=== PATIENT | male | born 1940 | race Caucasian/White ===

== ENCOUNTER 2016-12-09 10:56 | Emergency (ER) | payer MEDICARE ==
[~2016-12-09] VITALS: Ht 172.7 cm; Wt 88.5 kg
[~2016-12-09 10:56] MED LIST: EZET10 PO; HYDR-3535 PO; LIDO5T TOP; LOTE20TA PO
[2016-12-09 11:08] VITALS: BP 165/93; PULSE 72; RESP 18; TEMP 98.5; O2SAT 97
[2016-12-09] MEDS ORDERED: METF500T PO (11:25)
[2016-12-09] MEDS ORDERED: LOSA25TA PO (11:25)
[2016-12-09] MEDS ORDERED: ZETI10TA5 PO (11:25)
--- NOTE | 2016-12-09 11:44 | PD ---
HPI Chief Complaint: Foreign Body Time Seen by Provider: 11:38 Travel History International Travel<30 days: No Contact w/Intl Traveler<30days: No Traveled to known affect area: No History of Present Illness HPI This 75-year-old male is concerned that there may be a needle embedded in his right thigh. He gives himself test dose testosterone injections. He was giving himself an injection today and noted that there was no needle at the end of the syringe after the injection. He is not having pain or discomfort at the site PFSH Past Medical History Cancer: No Cardiovascular Problems: Yes High Cholesterol: Yes Diabetes: Yes Patient Takes Glucophage: Yes Endocrine: No Gout: Yes Genitourinary: No Hepatitis: No Hiatal Hernia: Yes Hypertension: Yes Immune Disorder: No Medical other: Yes (ARTHRITIS) Musculoskeletal: Yes (NECK AND BACK, ARTHRITIES) Neurologic: No Psychiatric: No Respiratory: No Immunizations Current: Yes Thyroid Disease: No Tetanus Vaccination: > 5 Years Influenza Vaccination: Yes Past Surgical History Abdominal Surgery: Yes (APPY) Appendectomy: Yes Body Medical Devices: JAW LEFT, RIGHT ORBITAL Eye Surgery: Yes (RIGHT ORBIT) Joint Replacement: Yes (RIGHT KNEE) Oral Surgery: Yes (LEFT JAW) Pacemaker: No Tonsillectomy: Yes Other Surgery: Yes Social History Alcohol Use: Yes (Occ.) Tobacco Use: No Substance Use: No Allergies-Medications (Allergen,Severity, Reaction): Coded Allergies: Sulfa (Verified Allergy, Severe, EYES SWOLLEN A CHILD AGE 3, 12/09/16) Reported Meds & Prescriptions Reported Meds & Active Scripts Active Reported Losartan (Losartan Potassium) 25 Mg Tab 12.5 Mg PO DAILY Metformin (Metformin HCl) 500 Mg Tab 500 Mg PO DAILY With a meal Zetia (Ezetimibe) 10 Mg Tab 10 Mg PO DAILY Review of Systems General / Constitutional: No: Fever, Chills Gastrointestinal: No: Vomiting, Diarrhea Physical Exam Narrative GENERAL: Well-developed male SKIN: Warm and dry. HEAD: Atraumatic. Normocephalic. EYES: Pupils equal and round. No scleral icterus. No injection or drainage. ENT: No nasal bleeding or discharge. Mucous membranes pink and moist. NECK: Trachea midline. No JVD. MUSCULOSKELETAL: No obvious deformities. No clubbing. No cyanosis. No edema. There is a small puncture wound on the lateral aspect of the mid thigh. There is no palpable foreign body NEUROLOGICAL: Awake and alert. No obvious cranial nerve deficits. Motor grossly within normal limits. Normal speech. PSYCHIATRIC: Appropriate mood and affect; insight and judgment normal. Data Data Last Documented VS Vital Signs Date Time Temp Pulse Resp B/P Pulse Ox O2 Delivery O2 Flow Rate FiO2 12/09/16 11:08 98.5 72 18 165/93 97 Orders Femur (Ap & Lat/2vws) (12/09/16 11:38) MDM Medical Decision Making Medical Screen Exam Complete: Yes Emergency Medical Condition: Yes Medical Record Reviewed: Yes Differential Diagnosis Differential includes foreign body right thigh Narrative Course X-ray is negative for foreign body. Patient is not having symptoms. He is stable for discharge Diagnosis Primary Impression: puncture wound, no foreign body see Disposition: 01 DISCHARGE HOME Condition: Stable Zach Haro MD Dec 09, 2016 11:44
--- NOTE | 2016-12-09 14:22 | RADHPO ---
EXAM DATE/TIME: 12/09/2016 11:46 [facility] COMPARISON: CHEST SINGLE AP, July 11, 2015, 14:57. INDICATIONS : Foreign body, patient gives himself injections and he thinks the needle broke off in his right mid th igh. MEDICAL HISTORY : None. SURGICAL HISTORY : Total knee replacement, right. ENCOUNTER: Initial ACUITY: 1 day PAIN SCORE: 0/10 LOCATION: Right mid thigh FINDINGS: Multiple views of the right femur demonstrates no evidence of fracture or dislocation. Bony mineral ization is normal. Total right knee arthroplasty in place without evidence of complication. The soft tissue structures are intact. CONCLUSION: No acute disease. Patricia Gupta MD on December 09, 2016 at 12:22 Board Certified Radiologist. This report was verified electronically.
== END 2016-12-09 12:15 | disposition home or self-care (01) ==
LOC: PHEFT 10:56
DX: S71.131A Puncture wound without foreign body, right thigh, initial encounter (principal); E78.00 Pure hypercholesterolemia, unspecified; I10 Essential (primary) hypertension; W45.8XXA Other foreign body or object entering through skin, initial encounter; W22.8XXA Striking against or struck by other objects, initial encounter; Y93.89 Activity, other specified; Y92.9 Unspecified place or not applicable
CPT/HCPCS: 73552; 99283

== ENCOUNTER 2017-01-05 15:44 | Emergency (ER) | payer MEDICARE ==
[~2017-01-05] VITALS: Ht 172.7 cm; Wt 89.5 kg
[~2017-01-05 15:44] MED LIST changes: -EZET10 PO; -HYDR-3535 PO; -LIDO5T TOP; +LOSA25TA PO; -LOTE20TA PO; +METF500T PO; +ZETI10TA5 PO
[2017-01-05 15:48] VITALS: PULSE 77; RESP 16; TEMP 98.5; O2SAT 96
[2017-01-05] MEDS ORDERED: TEST1INJ3 IM (16:12)
[2017-01-05] MEDS ORDERED: LOSA25TA PO (16:12)
[2017-01-05] MEDS ORDERED: ZETI10TA5 PO (16:12)
[2017-01-05] MEDS ORDERED: METF500T PO (16:12)
[2017-01-05] MEDS ORDERED: HGH IM (16:12)
--- NOTE | 2017-01-05 16:27 | PD ---
HPI Chief Complaint: Pain: Acute or Chronic Time Seen by Provider: 16:09 Travel History International Travel<30 days: No Contact w/Intl Traveler<30days: No Traveled to known affect area: No History of Present Illness HPI This patient complains of a burning sensation in his left upper back. Admits in the area of the shoulder blade. No injury. Duration 2 days. He has numerous joint ailments and chronic pains in his neck and back. He said cervical surgery. He recently had an MRI of his spine and is going to follow up with neurosurgery to discuss the results. He does not have muscle weakness or sensory loss. He has both hydrocodone and lidocaine patches at home but has not tried either. Symptom severity is moderate PFSH Past Medical History Hx Anticoagulant Therapy: No Cancer: No Cardiovascular Problems: Yes (HTN) High Cholesterol: Yes Diabetes: Yes Patient Takes Glucophage: Yes Diminished Hearing: No Endocrine: No Gout: Yes Genitourinary: No Hepatitis: No Hiatal Hernia: Yes Hypertension: Yes Immune Disorder: No Medical other: Yes (ARTHRITIS) Musculoskeletal: Yes (NECK AND BACK, ARTHRITIES) Neurologic: No Psychiatric: No Respiratory: No Immunizations Current: Yes Thyroid Disease: No Tetanus Vaccination: < 5 Years Past Surgical History Abdominal Surgery: Yes (APPY) Appendectomy: Yes Body Medical Devices: JAW LEFT, RIGHT ORBITAL Eye Surgery: Yes (RIGHT ORBIT) Joint Replacement: Yes (bilateral knees) Oral Surgery: Yes (LEFT JAW) Pacemaker: No Tonsillectomy: Yes Other Surgery: Yes Social History Alcohol Use: Yes (1-2 beer/vodka per week) Tobacco Use: No ("quit 45 years ago" stated 01/05/17) Substance Use: No Allergies-Medications (Allergen,Severity, Reaction): Coded Allergies: Sulfa (Verified Allergy, Severe, EYES SWOLLEN A CHILD AGE 3, 01/05/17) Reported Meds & Prescriptions Reported Meds & Active Scripts Active Reported [Hgh Inj] Mg IM DAILY Testosterone Cypionate Inj (Testosterone Cypionate) 100 Mg/Ml Inj 100 Mg IM WEEKLY Metformin (Metformin HCl) 500 Mg Tab 500 Mg PO DAILY With a meal Zetia (Ezetimibe) 10 Mg Tab 10 Mg PO HS Losartan (Losartan Potassium) 25 Mg Tab 12.5 Mg PO DAILY Review of Systems General / Constitutional: No: Fever HENT: No: Headaches Cardiovascular: No: Chest Pain or Discomfort Physical Exam Narrative SKIN: Inspection shows no rash or ulcers. Palpation shows no induration or nodules. NEUROLOGICAL: Awake and alert. Pupils are equal round and reactive. Motor and sensory grossly within normal limits. Five out of 5 muscle strength in all muscle groups. Normal speech. No midline tenderness of neck or back Good range of motion left shoulder. There is some tenderness in the rhomboid musculature just medial to the edge of the scapula Data Data Last Documented VS Vital Signs Date Time Temp Pulse Resp B/P Pulse Ox O2 Delivery O2 Flow Rate FiO2 01/05/17 15:48 98.5 77 16 96 MDM Medical Decision Making Medical Screen Exam Complete: Yes Emergency Medical Condition: Yes Medical Record Reviewed: Yes Differential Diagnosis Rhomboid muscle strain, peripheral neuropathy, disc herniation Narrative Course I have reviewed the patient's electronic medical record. No objective findings here on exam. He has a burning type of pain in the rhomboid musculature area. I offered him several different things including medication here were different medications on prescription but he declines them all He doesn't like to take medication and possible He has several options at home that he will consider using. Recommend he discuss with his family physician as well as his neurosurgeon There is no injury or trauma. I don't feel like emergency studies are going to be helpful here Today. Diagnosis Primary Impression: Back pain Qualified Code: M54.6 - Acute left-sided thoracic back pain Additional Instructions: The patient was advised to follow up with their physician and return if they worsen. Med/Other Pt SpecificInfo: Other Disposition: 01 DISCHARGE HOME Condition: Stable Miguel Rollins MD Jan 05, 2017 16:27
[2017-01-05 16:44] VITALS: BP 169/84
== END 2017-01-05 16:46 | disposition home or self-care (01) ==
LOC: PHED 15:44
DX: M54.6 Pain in thoracic spine (principal); I10 Essential (primary) hypertension; E78.00 Pure hypercholesterolemia, unspecified; E11.9 Type 2 diabetes mellitus without complications; Z87.891 Personal history of nicotine dependence
CPT/HCPCS: 99283